=== PATIENT | female | born 1980 | race American Indian/Alaskan Native ===

== ENCOUNTER 2021-04-12 12:24 | Emergency (ER) | payer OTHER ==
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
[2021-04-12] MEDS ORDERED: ACETAMINOPHEN 500 MG TAB PO NR (12:54)
[2021-04-12] MEDS ORDERED: cloNIDine 0.1 MG TAB PO NR (13:30)
[2021-04-12] MEDS ORDERED: TETANUS,DIPH,PERTUSS(ACELL) VACCINE 0.5 ML SYRINGE IM ONE (13:30)
--- NOTE | 2021-04-12 14:02 | XRay Report ---
RIGHT HAND 3 VIEWS INDICATION: bite base of right thumb. COMPARISON: None. IMPRESSION: No acute osseous abnormality or joint pathology is identified. The soft tissues are unr emarkable. Signer Name: Walt Santizo Jr, MD Signed: 04/12/2021 1:56 PM Workstation Name: [id number]
[2021-04-12 14:33] VITALS: BP 138/85
== END 2021-04-12 15:04 | disposition home or self-care (01) ==
LOC: ED 12:24
DX: S61.451A Open bite of right hand, initial encounter (principal); I10 Essential (primary) hypertension; W50.3XXA Accidental bite by another person, initial encounter; Y93.89 Activity, other specified; Y92.89 Other specified places as the place of occurrence of the external cause; Y99.8 Other external cause status
CPT/HCPCS: 90471; 90715; 99283

== ENCOUNTER 2021-05-24 01:09 | Emergency (ER) | payer OTHER ==
[2021-05-24] MEDS ORDERED: ONDANSETRON 4 MG ODT TAB PO ONE (04:30)
[2021-05-24] MEDS ORDERED: HYOSCYAMINE SUBL 0.125 MG TAB SL ONE (04:32)
[2021-05-24 04:59] LABS: Hematocrit 41.8 % (30.3-42.9); Mean Corpuscular HGB Conc 33 % (30-34); Mean Corpuscular Volume 88 fl (79-97); Platelet Count 272 K/mm3 (140-440); Red Blood Count 4.75 M/mm3 (3.65-5.03); Red Cell Distribution Width 13.6 % (13.2-15.2)
[2021-05-24 05:11] LABS: Bacteria,Urine 1+ /HPF (Negative); Bilirubin,Urine NEG (Negative); Blood,Urine NEG (Negative); Color,Urine Yellow (Yellow); HCG Qualitative,Urine Negative (Negative); Mucus,Urine FEW /HPF; Protein,Urine <15 mg/dL mg/dL (Negative); RBC,Urine < 1.0 /HPF (0.0-6.0); Urobilinogen,Urine < 2.0 mg/dL (<2.0)
[2021-05-24 05:15] LABS: Alanine Aminotransferase 9 units/L (7-56); Albumin 4.1 g/dL (3.9-5); Blood Urea Nitrogen 11 mg/dL (7-17); Calcium 8.7 mg/dL (8.4-10.2); Hemolysis Index 5
[2021-05-24 05:16] LABS: BUN/Creatinine Ratio 16
--- NOTE | 2021-05-24 05:30 | Emergency Department Report ---
ED N/V/D HPI - General Chief complaint: Nausea/Vomiting/Diarrhea Stated complaint: ABD PAIN Time Seen by Provider: 05/24/21 04:32 Source: patient Mode of arrival: Ambulatory Limitations: No Limitations - History of Present Illness MD complaint: nausea, vomiting, diarrhea -: Sudden (This morning around 12 AM) Associated Abdominal Pain: No Location: diffuse Radiation: none Severity: mild Quality: dull Consistency: constant Improves with: none Worsens with: none Context: possible food poisoning Associated Symptoms: nausea/vomiting. denies: myalgias, chest pain, loss of appetite, dysuria, shortness of breath, syncope - Related Data Previous Rx's Medication Instructions Recorded Last Taken Type Acetaminophen/Codeine [Tylenol 1 tab PO Q6H PRN #10 tab 04/12/21 Unknown Rx /Codeine # 3 tab] Amoxicillin/Potassium Clav 1 each PO BID #14 tablet 04/12/21 Unknown Rx [Augmentin 875-125 Tablet] hydroCHLOROthiazide [HCTZ] 25 mg PO QDAY #30 tablet 04/12/21 Unknown Rx Hyoscyamine Subl [Levsin Sl 0.125 0.125 mg SL Q6HR PRN #20 tab 05/24/21 Unknown Rx TAB] Ondansetron [Zofran ODT TAB] 8 mg PO Q12HR #14 tab.rapdis 05/24/21 Unknown Rx Allergies Allergy/AdvReac Type Severity Reaction Status Date / Time No Known Allergies Allergy Verified 04/12/21 13:07 ED Review of Systems ROS: Stated complaint: ABD PAIN Other details as noted in HPI ED Past Medical Hx - Past Medical History Hx Hypertension: Yes - Surgical History Additional Surgical History: bariatric - Social History Smoking Status: Never Smoker Substance Use Type: None - Medications Home Medications: Home Medications Medication Instructions Recorded Confirmed Last Taken Type Acetaminophen/Codeine [Tylenol 1 tab PO Q6H PRN #10 tab 04/12/21 Unknown Rx /Codeine # 3 tab] Amoxicillin/Potassium Clav 1 each PO BID #14 tablet 04/12/21 Unknown Rx [Augmentin 875-125 Tablet] hydroCHLOROthiazide [HCTZ] 25 mg PO QDAY #30 tablet 04/12/21 Unknown Rx Hyoscyamine Subl [Levsin Sl 0.125 0.125 mg SL Q6HR PRN #20 tab 05/24/21 Unknown Rx TAB] Ondansetron [Zofran ODT TAB] 8 mg PO Q12HR #14 tab.rapdis 05/24/21 Unknown Rx ED Physical Exam - General Limitations: No Limitations ED Course Vital Signs 05/24/21 02:22 Temperature 98.5 F Pulse Rate 71 Respiratory 20 Rate Blood Pressure 153/98 [Left] O2 Sat by Pulse 98 Oximetry ED Medical Decision Making - Lab Data Result diagrams: 05/24/21 04:42 05/24/21 04:42 - Medical Decision Making Patient presents to the emergency department with nausea, vomiting, diarrhea, differential diagnosis includes possible acute gastroenteritis. Abdominal examination without peritoneal signs. Currently patient is euvolemic without evidence of dehydration. No evidence of surgical abdomen or other acute medical emergency including bowel obstruction, viscus perforation, vascular catastrophe, appendicitis, cholecystitis at this time. Presentation not consistent with other acute emergent causes of vomiting and diarrhea at this time. No indication for abdominal imaging Plan supportive care, oral/IV rehydration, antiemetics and reassess Critical care attestation.: If time is entered above; I have spent that time in minutes in the direct care of this critically ill patient, excluding procedure time. ED Disposition Clinical Impression: Vomiting, Diarrhea Disposition: HOME / SELF CARE / HOMELESS Is pt being admited?: No Does the pt Need Aspirin: No Condition: Stable Instructions: Diarrhea, Adult, Nausea and Vomiting, Adult, Food Choices to Help Relieve Diarrhea, Adult, Nausea and Vomiting, Adult, [id number] Additional Instructions: You have been evaluated emergency department today for abdominal pain. Your evaluation did not show evidence of any medical conditions requiring emergent intervention at this time. Your lipase was it was elevated but not to a significant degree significant pancreatitis does not appear to be present at this time please drink plenty of fluids. Urostomy bag emergency department for your nausea and vomiting. Your evaluation suggest that your symptoms are most likely due to a viral illness which will improve on its own with rest and fluids. Remember to drink fluids at home. Please schedule an appointment with your primary care physician. Return to emergency department if you experience worsening uncontrolled pain, fevers of 100.4 or greater, recurrent vomiting, inability to tolerate food or fluids by mouth, bloody stools or vomit, black tarry stools, or any other concerning symptoms. Prescriptions: Hyoscyamine Subl [Levsin Sl 0.125 TAB] 0.125 mg SL Q6HR PRN #20 tab PRN Reason: abdominal cramps and spasms Ondansetron [Zofran ODT TAB] 8 mg PO Q12HR #14 tab.mary Referrals: ANAY TOBAR MD [Other] - 3-5 Days
[2021-05-24 05:52] VITALS: BP 155/90
[2021-05-24 06:58] LABS: Band Neutrophils # (Manual) 0.1 K/mm3; Total Cells Counted 100
[2021-05-24 07:03] LABS: Anisocytosis 1+; Platelet Estimate Consistent w Auto
--- NOTE | 2021-05-25 17:30 | Electrocardiograph Report ---
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
== END 2021-05-24 05:54 | disposition home or self-care (01) ==
LOC: ED 01:09
DX: R11.2 Nausea with vomiting, unspecified (principal); R19.7 Diarrhea, unspecified; I10 Essential (primary) hypertension
CPT/HCPCS: 36415; 80053; 81001; 81025; 83690; 85007; 85025; 93005; 99283; J3490; Q0162